=== PATIENT | female | born 1965 | race African-American/Black ===

== ENCOUNTER 2019-04-23 09:51 | Emergency (ER) | payer OTHER ==
[~2019-04-23] VITALS: Ht 157.5 cm; Wt 67.0 kg
[2019-04-23 10:23] LABS: BASOPHILS % 0.3 % (0.0-2.0); HEMOGLOBIN. 14.2 g/dL (12.0-16.0); LYMPHOCYTES % 23.9 % (20.0-50.0); MEAN CORPUSCULAR HEMOGLOBIN 29.7 pg (28.0-32.0); MEAN CORPUSCULAR VOLUME 89.8 fL (81.0-99.0); MEAN PLATELET VOLUME 7.4 fl (7.4-10.4); MONOCYTES % 6.7 % (2.0-8.0); NEUTROPHILS % 68.1 % (40.0-76.0); PLATELET 274 x1000/uL (130-400); RED BLOOD CELL COUNT 4.78 mill/uL (4.2-5.4); RED CELL DISTRIBUTION WIDTH 14.8 % (11.6-14.6)
[2019-04-23 10:31] LABS: CHLORIDE 110 mEq/L (98-107)
[2019-04-23 10:33] LABS: INR 1.5; PARTIAL THROMBOPLASTIN TIME 35.7 sec (23.4-31.0)
[2019-04-23] MEDS ORDERED: MORPHINE SULFATE 4 MG/ML CPJ (NOT FOR IM USE) IV STA (10:36)
[2019-04-23] MEDS ORDERED: ONDANSETRON HCL 4MG/2ML INJ IV STA (10:36)
[2019-04-23 11:32] VITALS: BP 109/69
== END 2019-04-23 12:55 | disposition short-term general hospital (02) ==
LOC: ER 09:51 → CANBEDREQ 12:32 → ER 12:55
DX: R07.89 Other chest pain (principal); I10 Essential (primary) hypertension; F03.90 Unspecified dementia, unspecified severity, without behavioral disturbance, psychotic disturbance, mood disturbance, and anxiety; Z86.73 Personal history of transient ischemic attack (TIA), and cerebral infarction without residual deficits; Z95.0 Presence of cardiac pacemaker; Z79.01 Long term (current) use of anticoagulants
CPT/HCPCS: 36415; 71045; 80053; 83880; 84484; 85025; 85610; 85730; 93005; 96374; 96375; 99285; J2270; J2405